=== PATIENT | male | born 1995 | race Caucasian/White ===

== ENCOUNTER 2016-11-17 21:53 | Emergency (ER) | payer SELFPAY ==
[~2016-11-17] VITALS: Ht 193 cm; Wt 112.4 kg
[~2016-11-17 21:53] MED LIST: ACIPHEX20 MG PO; BENTYL10 MG PO; KEFLEX500 MG PO; NAPROSYN500 MG PO; PROMETHAZINE HC25 M1 PO; VICODIN,LORT1 TABLET PO
[2016-11-17 21:58] VITALS: BP 157/88
[2016-11-18 05:51] LABS: ADD MIUA? YES; BILIRUBIN NEGATIVE; BLOOD NEGATIVE; COLOR YELLOW ((YELLOW)); GLUCOSE (STRIP) NEGATIVE; KETONES NEGATIVE; LEUKOCYTES NEGATIVE; NITRITE NEGATIVE; PROTEIN (STRIP) NEGATIVE; SPECIFIC GRAVITY 1.023 (1.000-1.030)
[2016-11-18 05:54] LABS: BACTERIA NONE SEEN /HPF; CALCIUM OXALATE CRYSTALS 3+ /HPF; EPITHELIAL CELLS NONE SEEN /HPF; MUCUS TRACE /LPF; RED BLOOD CELLS 0-5 /HPF (0-5); UCUL ADDED? NO; WHITE BLOOD CELLS 0-5 /HPF (0-5)
[2016-11-20 13:40] LABS: CHLAMYDIA TRACHOMATIS NEGATIVE; NEISSERIA GONORRHOEAE NEGATIVE
== END 2016-11-18 01:14 | disposition left against medical advice (07) ==
LOC: EME 21:53
PROVIDERS: Physician Assistant
DX: N50.812 Left testicular pain (principal); N50.89 Other specified disorders of the male genital organs; N50.3 Cyst of epididymis; Z53.21 Procedure and treatment not carried out due to patient leaving prior to being seen by health care provider
CPT/HCPCS: 76870; 81003; 87491; 87591